=== PATIENT | female | born 1960 | race African-American/Black ===

== ENCOUNTER 2021-07-20 21:01 | Emergency (ER) | payer OTHER, MEDICAID ==
[~2021-07-20] VITALS: Ht 167.6 cm; Wt 46.0 kg
[2021-07-20] MEDS ORDERED: DOCUSATE SODIUM 100MG CAPSULE PO ONE (23:00)
[2021-07-20] MEDS ORDERED: NA PHOS,M-B/NA PHOS,DI-BA ENEMA 118ML PR ONE (23:00)
[2021-07-21] MEDS ORDERED: GLYCERIN ADULT SUPPOSITORY PR ONE (00:45)
[2021-07-21] MEDS ORDERED: DOCU-138 MT (01:00)
[2021-07-21 01:25] VITALS: BP 157/92
== END 2021-07-21 01:30 | disposition home or self-care (01) ==
LOC: ER 21:01
DX: K59.00 Constipation, unspecified (principal); I49.8 Other specified cardiac arrhythmias
CPT/HCPCS: 93005; 99283